=== PATIENT | male | born 1945 | race Caucasian/White ===

== ENCOUNTER 2022-09-01 14:04 | Emergency (ER) | payer MEDICARE, OTHER ==
[~2022-09-01] VITALS: Ht 185.4 cm; Wt 149.7 kg
[~2022-09-01 14:04] MED LIST: ALLOPURINOL300 MG PO; ASPIRIN81 MG PO; AVODART0.5 MG PO; BRIMONIDINE TART5 ML OP; CARDURA1 MG PO; COMBIVENT RESPIM4 GM; CRESTOR10 MG PO; FISH OIL 1,0001 EAC2 PO; HYDROCHLOROTHIA25 MG PO; LEVOTHYROXINE137 MCG PO; LOSARTAN POTAS100 MG PO; MONTELUKAST SOD10 MG PO; MULTI-VITAMIN1 EACH PO; NOVOLOG100 UNIT/1 SC; SUPER B MAXI C0.4 MG PO; TRAVATAN Z5 ML OP; TRESIBA100 UNIT/1 SC; VESICARE5 MG PO; VIT D3 PO
[2022-09-01 15:39] LABS: CLARITY,URINE CLOUDY (CLEAR); COLOR,URINE BROWN (YELLOW); LEUKOCYTE ESTERASE ,URINE TRACE (NEGATIVE); NITRITE,URINE NEGATIVE (NEGATIVE)
[2022-09-01 15:40] LABS: KETONES,URINE NEGATIVE (NEGATIVE); PROTEIN,URINE DIPSTICK >=300 (NEGATIVE); URINE UROBILINOGEN 0.2 mg/dL (0.2 - 1)
[2022-09-01 15:49] LABS: BACTERIA,URINE MODERATE /HPF; RBC,URINE >50 /HPF (0-5); WBC,URINE (MAN) 0-5 /HPF (0-5)
[2022-09-01] MEDS ORDERED: CIPRO500 MG PO (16:36)
[2022-09-01 17:26] VITALS: BP 140/82
== END 2022-09-01 17:21 | disposition home or self-care (01) ==
LOC: ER 14:28
DX: R33.9 Retention of urine, unspecified (principal); N39.0 Urinary tract infection, site not specified; R31.9 Hematuria, unspecified; R10.30 Lower abdominal pain, unspecified; I10 Essential (primary) hypertension
CPT/HCPCS: 51700; 74176; 81001; 87086; 99283

== ENCOUNTER 2022-11-21 08:25 | Emergency (ER) | payer MEDICARE, OTHER ==
[~2022-11-21] VITALS: Ht 185.4 cm; Wt 149.7 kg
[~2022-11-21 08:25] MED LIST changes: +CIPRO500 MG PO
[2022-11-21] MEDS ORDERED: SODIUM CHLORIDE 0.9% 500ML 500 ML IV ONE (09:15)
[2022-11-21 09:35] LABS: BASOPHILS % 0.4 % (0.0-1.0); EOSINOPHILS # (AUTO) 0.1 (0.0-0.4); EOSINOPHILS % 1.9 % (0.0-6.0); HEMATOCRIT 44.2 % (38.2-49.6); HEMOGLOBIN 14.3 g/dL (14.0-18.0); LYMPHOCYTES % 13.8 % (18.0-39.1); MEAN CORPUSCULAR HGB CONC 32.4 g/dL (31-35); MEAN CORPUSCULAR VOLUME 95.7 fL (81-99); MONOCYTES # (AUTO) 0.9 (0.2-0.8); MONOCYTES % 11.4 % (4.4-11.3); NEUTROPHILS # (AUTO) 5.5 (2.1-6.9); NEUTROPHILS % 72.2 % (38.7-80.0); PLATELET COUNT 259 x10e3/uL (140-360); RED BLOOD COUNT 4.62 x10e6/uL (4.3-5.7); RED CELL DISTRIBUTION WIDTH 13.9 % (11.7-14.4)
[2022-11-21 09:40] LABS: PARTIAL THROMBOPLASTIN TIME 27.5 seconds (23.8-35.5); PROTHROMBIN TIME 13.7 seconds (11.9-14.5)
[2022-11-21 09:49] LABS: ALBUMIN 3.4 g/dL (3.5-5.0); ALBUMIN/GLOBULIN RATIO 1.1 (0.8-2.0); ANION GAP 15.9 mmol/L (8-16); CALCIUM 9.4 mg/dL (8.4-10.2); CREATININE, SERUM 1.37 mg/dL (0.72-1.25); MAGNESIUM 1.8 MG/DL (1.3-2.1); POTASSIUM 3.9 mmol/L (3.5-5.1)
[2022-11-21] MEDS ORDERED: SODIUM CHLORIDE 0.9% 250ML 250 ML ONE (10:27)
[2022-11-21] MEDS ORDERED: IOPAMIDOL 370 MG/ML 100 ML INFUS..BTL INJ ONE (10:27)
[2022-11-21 12:56] LABS: CLARITY,URINE TURBID (CLEAR); COLOR,URINE BROWN (YELLOW); LEUKOCYTE ESTERASE ,URINE NEGATIVE (NEGATIVE); NITRITE,URINE NEGATIVE (NEGATIVE)
[2022-11-21 12:57] LABS: KETONES,URINE NEGATIVE (NEGATIVE); PROTEIN,URINE DIPSTICK >=300 (NEGATIVE); URINE UROBILINOGEN 0.2 mg/dL (0.2 - 1)
[2022-11-21] MEDS ORDERED: SODIUM CHLORIDE 0.9% 500ML 500 ML ONE (13:00)
[2022-11-21] MEDS ORDERED: CIPRO250 MG PO (13:03)
[2022-11-21 13:14] LABS: RBC,URINE >50 /HPF (0-5)
[2022-11-21 13:16] LABS: BACTERIA,URINE MODERATE /HPF; EPITHELIAL CELLS,URINE RARE /LPF
[2022-11-21 14:19] VITALS: BP 173/77
== END 2022-11-21 14:46 | disposition home or self-care (01) ==
LOC: ER 08:43
DX: R31.0 Gross hematuria (principal); R33.9 Retention of urine, unspecified; I10 Essential (primary) hypertension; N28.1 Cyst of kidney, acquired; K42.9 Umbilical hernia without obstruction or gangrene; E66.9 Obesity, unspecified; N40.0 Benign prostatic hyperplasia without lower urinary tract symptoms; Z98.61 Coronary angioplasty status
CPT/HCPCS: 36415; 51700; 74178; 80053; 81001; 83735; 85025; 85610; 85730; 87086; 99284; J7040; J7050; Q9967

== ENCOUNTER 2024-08-19 08:31 | Emergency (ER) | payer MEDICARE, OTHER ==
[~2024-08-19] VITALS: Ht 185.4 cm; Wt 149.7 kg
[~2024-08-19 08:31] MED LIST changes: +CIPRO250 MG PO
[2024-08-19 08:44] VITALS: TEMP 97.2
[2024-08-19] MEDS: HYDROCODONE/APAP 7.5MG-325MG 1 EA TAB PO ONE (09:14)
[2024-08-19 10:41] VITALS: PULSE 84; RESP 18
[2024-08-19 12:12] VITALS: BP 177/91; PULSE 80; RESP 18; O2SAT 100
== END 2024-08-19 12:14 | disposition home or self-care (01) ==
LOC: ER 08:36
DX: M25.512 Pain in left shoulder (principal); M89.9 Disorder of bone, unspecified; I10 Essential (primary) hypertension; E11.9 Type 2 diabetes mellitus without complications; I48.91 Unspecified atrial fibrillation; Z85.51 Personal history of malignant neoplasm of bladder
CPT/HCPCS: 70450; 72125; 99283